=== PATIENT | male | born 1960 | race Caucasian/White ===

== ENCOUNTER → 2017-12-20 | Outpatient (CLI) | payer OTHER ==
--- NOTE | 2017-12-20 10:58 | XR ---
EXAMINATION TYPE: XR foot complete RT DATE OF EXAM: 12/20/2017 CLINICAL HISTORY: Right heel pain after stepping on a pipe TECHNIQUE: Frontal, lateral, and oblique images of the right foot are obtained. COMPARISON: None FINDINGS: There is no acute fracture/dislocation evident in the right foot. 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 Similar changes are seen of the distal interphalangeal joints to a lesser degree. There is a small infracalcaneal/and plantar enthesophyte noted. The overlying soft tissue appears unremarkable. IMPRESSION: There is no acute fracture or dislocation in the right foot. Small plantar heel spur and moderate arthropathy.
== END | disposition home or self-care (01) ==
LOC: RADXRMAIN 10:13
PROVIDERS: ATTEND Emergency Medicine
DX: M19.071 Primary osteoarthritis, right ankle and foot (principal); M77.31 Calcaneal spur, right foot

== ENCOUNTER → 2018-01-10 | Outpatient (CLI) | payer OTHER ==
--- NOTE | 2018-01-10 09:52 | XR ---
EXAMINATION TYPE: XR foot complete RT DATE OF EXAM: 01/10/2018 COMPARISON: NONE HISTORY: Pain TECHNIQUE: Three views are submitted. FINDINGS: The osseous structures are intact. There is no acute fracture or dislocation. Arthropathy of the f irst MTP joint calcaneal spur noted IMPRESSION: 1. No acute fracture or dislocation. If symptoms persist, follow-up exam in 7 to 10 days could be ob tained.
== END | disposition home or self-care (01) ==
LOC: RADXRMAIN 09:31
PROVIDERS: ATTEND Emergency Medicine
DX: M79.671 Pain in right foot (principal)